=== PATIENT | female | born 2005 | race Caucasian/White ===

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

== ENCOUNTER → 2025-01-19 10:38 | Outpatient (CLI) | payer OTHER, SELFPAY ==
[2025-01-19 12:31] LABS: Urine N gonorrhoeae NOT DETECTED
[2025-01-19 12:53] LABS: Urine Chlamydia NOT DETECTED
== END ==
PROVIDERS: PCP Family Medicine; Visit Provider Chiropractor
DX: R30.0 Dysuria (principal); N94.9 Unspecified condition associated with female genital organs and menstrual cycle
CPT/HCPCS: 87210; 87491; 87591